=== PATIENT | female | born 1930 | race African-American/Black ===

== ENCOUNTER 2016-09-26 10:51 | Outpatient (CLI) | payer MEDICARE, OTHER ==
[2016-09-26 13:07] LABS: ALT (SGPT) 10 U/L (0-55); AST (SGOT) 16 U/L (5-34); Alkaline Phosphatase 127 U/L (40-150); Anion Gap 15 mmol/L (10-20); BUN (Urea Nitrogen) 15 mg/dL (9.8-20.1); Bilirubin, Total 0.5 mg/dL (0.2-1.2); Calc. Creatinine Clearance 0 mL/min (70-130); Calcium 9.5 mg/dL (7.8-10.44); Carbon Dioxide 33 mmol/L (23-31); Chloride 100 mmol/L (98-107); Estimated GFR-MDRD 77; Globulin 3.6 g/dL (2.4-3.5); LDL Cholesterol, Calculated 80 mg/dL; Protein, Total 7.8 g/dL (5.8-8.1)
[2016-09-26 13:26] LABS: Hemoglobin A1c 5.8 % (4.0-6.0)
[2016-09-26 14:07] LABS: #Basophils 0.1 thou/uL (0.0-0.2); #Eosinphils 0.2 thou/uL (0.0-0.7); #Lymphocytes 1.6 thou/uL (1.20-3.40); #Monocytes 0.5 thou/uL (0.11-0.59); #Neutrophils 4.7 thou/uL (1.40-6.50); %Basophils 1.2 % (0.0-1.0); %Eosinophils 2.6 % (0.0-10.0); %Monocytes 7.4 % (0.0-10.0); Hematocrit 39.7 % (36.0-47.0); Macrocytosis SLIGHT = 6-15 cells (100X) (0-5/hpf); Mean Platelet Volume 6.7 fL (7.4-10.4); Red Blood Cell (RBC) Count 3.73 mill/uL (4.20-5.40); White Blood Cell (WBC) Count 7.1 thou/uL (4.8-10.8)
== END 2016-09-26 10:52 | disposition home or self-care (01) ==
LOC: HPCALD 10:51
PROVIDERS: ATTEND Family Medicine
DX: E11.9 Type 2 diabetes mellitus without complications (principal); I10 Essential (primary) hypertension; D53.9 Nutritional anemia, unspecified; E78.00 Pure hypercholesterolemia, unspecified
CPT/HCPCS: 36415; 80053; 80061; 82607; 82728; 83036; 85025

== ENCOUNTER 2016-10-12 09:19 | Outpatient (CLI) | payer MEDICARE, OTHER ==
[2016-10-12 11:17] LABS: #Basophils 0.1 thou/uL (0.0-0.2); #Eosinphils 0.2 thou/uL (0.0-0.7); #Lymphocytes 1.6 thou/uL (1.20-3.40); #Monocytes 0.6 thou/uL (0.11-0.59); #Neutrophils 5.3 thou/uL (1.40-6.50); %Basophils 1.4 % (0.0-1.0); %Eosinophils 3.1 % (0.0-10.0); %Monocytes 7.4 % (0.0-10.0); Hematocrit 39.6 % (36.0-47.0); Mean Platelet Volume 7.2 fL (7.4-10.4); Red Blood Cell (RBC) Count 3.74 mill/uL (4.20-5.40); White Blood Cell (WBC) Count 7.8 thou/uL (4.8-10.8)
[2016-10-12 11:23] LABS: ALT (SGPT) 12 U/L (0-55); AST (SGOT) 18 U/L (5-34); Alkaline Phosphatase 139 U/L (40-150); Anion Gap 19 mmol/L (10-20); BUN (Urea Nitrogen) 12 mg/dL (9.8-20.1); Bilirubin, Total 0.7 mg/dL (0.2-1.2); Calc. Creatinine Clearance 0 mL/min (70-130); Calcium 9.8 mg/dL (7.8-10.44); Carbon Dioxide 29 mmol/L (23-31); Chloride 101 mmol/L (98-107); Estimated GFR-MDRD 81; Protein, Total 8.3 g/dL (5.8-8.1)
[2016-10-12 13:06] LABS: Macrocytosis SLIGHT = 6-15 cells (100X) (0-5/hpf)
== END 2016-10-12 09:20 | disposition home or self-care (01) ==
LOC: BURLAB 09:19
PROVIDERS: ATTEND Internal Medicine Rheumatology
DX: M05.79 Rheumatoid arthritis with rheumatoid factor of multiple sites without organ or systems involvement (principal); Z79.899 Other long term (current) drug therapy
CPT/HCPCS: 36415; 80053; 85025; 85652; 86140

== ENCOUNTER 2016-12-01 09:21 | Emergency (ER) | payer MEDICARE, OTHER ==
[2016-12-01 10:17] LABS: #Basophils 0.1 thou/uL (0.0-0.2); #Eosinphils 0.2 thou/uL (0.0-0.7); #Lymphocytes 1.7 thou/uL (1.20-3.40); #Monocytes 0.7 thou/uL (0.11-0.59); #Neutrophils 6.3 thou/uL (1.40-6.50); %Basophils 1.2 % (0.0-1.0); %Lymphocytes 18.5 % (21.0-51.0); %Monocytes 8.3 % (0.0-10.0); %Neutrophils 70.1 % (42.0-75.0); Hemoglobin 11.6 g/dL (12.0-16.0); Mean Corpuscular HGB CONC 30.7 g/dL (32.0-36.0); Mean Corpuscular Hemoglobin 33.1 pg (27.0-31.0); Mean Platelet Volume 8.1 fL (7.4-10.4); Platelet Count 193 thou/uL (130-400); RBC Distribution Width 15.2 % (11.5-14.5)
[2016-12-01 10:24] LABS: ALT (SGPT) 10 U/L (0-55); AST (SGOT) 16 U/L (5-34); Albumin 3.9 g/dL (3.4-4.8); Alkaline Phosphatase 124 U/L (40-150); Anion Gap 14 mmol/L (10-20); BUN (Urea Nitrogen) 19 mg/dL (9.8-20.1); Bilirubin, Total 0.5 mg/dL (0.2-1.2); Calc. Creatinine Clearance 0 mL/min (70-130); Calcium 9.5 mg/dL (7.8-10.44); Carbon Dioxide 36 mmol/L (23-31); Chloride 98 mmol/L (98-107); Estimated GFR-MDRD 67; Globulin 3.6 g/dL (2.4-3.5); Glucose 103 mg/dL (83-110); Protein, Total 7.5 g/dL (5.8-8.1); Sodium 144 mmol/L (136-145)
[2016-12-01 10:26] LABS: CKMB 0.8 ng/mL (0-6.6); Troponin I Less than 0.010 ng/mL (< 0.028)
[2016-12-01] MEDS ORDERED: predniSONE 20 MG TAB ONE (10:35)
[2016-12-01] MEDS ORDERED: Fentanyl 100 MCG/2 ML VIAL ONE ×2 (10:35→11:07)
[2016-12-01 10:40] LABS: MDiff Complete? YES; Macrocytosis SLIGHT = 6-15 cells (100X) (0-5/hpf); PLT Morphology Comment Appears Adequate
--- NOTE | 2016-12-01 19:08 | RAD ---
LEFT HIP THREE VIEWS 12/01/16 Comparison is made with an 07/02/13 study. Severe arthritic changes are present in the hip joint consisting of prominent joint space narrowing and slight irregularity of the femoral head. There is some cystic change in mottling of the head. Th e adjacent pubic ring has a very coarse trabecular pattern suggesting of Paget's disease. I do not s ee any acute fracture; however, subtle fractures would be easily missed in this patient due to all o f the changes listed above. If clinical suspicion of such were high, additional imaging, such was MR I, would be needed. IMPRESSION: 1. Severe arthritic changes. The appearance is somewhat similar to the 2013 study. There may be slight advancement over time. 2. 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 POS: HOME
== END 2016-12-01 11:24 | disposition home or self-care (01) ==
LOC: BURERS 09:21
DX: M06.9 Rheumatoid arthritis, unspecified (principal); I11.0 Hypertensive heart disease with heart failure; I50.9 Heart failure, unspecified; Z79.82 Long term (current) use of aspirin; Z79.899 Other long term (current) drug therapy
CPT/HCPCS: 36415; 80053; 82553; 84484; 85025; 93005; 96372; J3010; J7506

== ENCOUNTER 2017-03-08 09:33 | Outpatient (CLI) | payer MEDICARE, OTHER ==
[2017-03-08 10:19] LABS: #Basophils 0.1 thou/uL (0.0-0.2); #Eosinphils 0.2 thou/uL (0.0-0.7); #Lymphocytes 1.9 thou/uL (1.20-3.40); #Monocytes 0.7 thou/uL (0.11-0.59); #Neutrophils 5.5 thou/uL (1.40-6.50); %Basophils 1.7 % (0.0-1.0); %Eosinophils 2.8 % (0.0-10.0); %Lymphocytes 22.1 % (21.0-51.0); %Monocytes 7.9 % (0.0-10.0); %Neutrophils 65.5 % (42.0-75.0); Hemoglobin 12.3 g/dL (12.0-16.0); Mean Corpuscular HGB CONC 32.7 g/dL (32.0-36.0); Mean Corpuscular Hemoglobin 34.2 pg (27.0-31.0); Mean Platelet Volume 6.7 fL (7.4-10.4); Platelet Count 215 thou/uL (130-400); RBC Distribution Width 14.8 % (11.5-14.5); White Blood Cell (WBC) Count 8.5 thou/uL (4.8-10.8)
[2017-03-08 12:16] LABS: ALT (SGPT) 13 U/L (8-55); AST (SGOT) 20 U/L (5-34); Albumin 4.1 g/dL (3.4-4.8); Alkaline Phosphatase 180 U/L (40-150); Anion Gap 15 mmol/L (10-20); BUN (Urea Nitrogen) 20 mg/dL (9.8-20.1); Bilirubin, Total 0.7 mg/dL (0.2-1.2); Calc. Creatinine Clearance 0 mL/min (70-130); Calcium 9.9 mg/dL (7.8-10.44); Carbon Dioxide 34 mmol/L (23-31); Cardiac Risk 3.4 (Less than 4.5); Chloride 100 mmol/L (98-107); Cholesterol 136 mg/dl (< 200 Desired); Estimated GFR-MDRD 66; Globulin 3.6 g/dL (2.4-3.5); Glucose 100 mg/dL (83-110); HDL Cholesterol 40 mg/dL (>60 Neg Risk); LDL Cholesterol, Calculated 72 mg/dL; Potassium 4.9 mmol/L (3.5-5.1); Protein, Total 7.7 g/dL (6.0-8.3); Sodium 144 mmol/L (136-145); Triglycerides 119 mg/dL (Less than 150)
[2017-03-08 13:16] LABS: MDiff Complete? YES; Macrocytosis SLIGHT = 6-15 cells (100X) (0-5/hpf); PLT Morphology Comment Appears Adequate
== END 2017-03-08 09:34 | disposition home or self-care (01) ==
LOC: BURLAB 09:33
PROVIDERS: ATTEND Family Medicine
DX: E78.00 Pure hypercholesterolemia, unspecified (principal); I10 Essential (primary) hypertension; R73.9 Hyperglycemia, unspecified
CPT/HCPCS: 36415; 80053; 80061; 83036; 85025

== ENCOUNTER 2019-03-24 04:11 | Emergency (ER) | payer MEDICARE, BC ==
[2019-03-24] MEDS ORDERED: HYDROcodone/Acetaminophen 10/325 mg Tablet ONE (04:56)
[2019-03-24] MEDS ORDERED: Ibuprofen 800 MG TAB ONE (04:56)
--- NOTE | 2019-03-24 07:52 | RAD ---
EXAM: 3 views of the right shoulder HISTORY: Shoulder pain after fall COMPARISON: 11/03/2009 FINDINGS: There is a comminuted fracture of the right humeral neck. Severe degenerative changes seen in the right shoulder joint. No dislocation is seen. Mild soft tissue swelling is seen. The visualized thorax is unremarkable. IMPRESSION: Comminuted right proximal humerus fracture
== END 2019-03-24 05:15 | disposition home or self-care (01) ==
LOC: BURERS 04:11
DX: S42.211A Unspecified displaced fracture of surgical neck of right humerus, initial encounter for closed fracture (principal); I11.0 Hypertensive heart disease with heart failure; I50.9 Heart failure, unspecified; M06.9 Rheumatoid arthritis, unspecified; Z79.82 Long term (current) use of aspirin; Z79.899 Other long term (current) drug therapy; Z79.52 Long term (current) use of systemic steroids; W06.XXXA Fall from bed, initial encounter

== ENCOUNTER 2019-03-26 10:35 | Inpatient (IN) | payer MEDICARE, BC ==
[2019-03-26] MEDS ORDERED: tiZANidine HCl 4 MG TAB PO PRN ×2 (13:30→13:38)
[2019-03-26] MEDS ORDERED: Methotrexate Sodium 2.5 MG TAB PO SCH (14:00)
[2019-03-26] MEDS ORDERED: PATIENT'S HOME MEDICATION EA EYE PRN (15:30)
[2019-03-26] MEDS ORDERED: HYPROMELLOSE EA EYE PRN (15:35)
[2019-03-26] MEDS ORDERED: SYSTANE EYE EA EYE PRN (15:45)
[2019-03-26] MEDS ORDERED: Ketorolac Tromethamine 30 MG/ML VIAL IVP PRN (17:06)
--- NOTE | 2019-03-26 18:01 | RAD ---
AP PELVIS: HISTORY: The patient is status post fall with bruising. COMPARISON: 06/22/2013 TECHNIQUE: This is a portable exam, and the technique is suboptimal. FINDINGS: The pelvis ring appears to be intact without evidence of fracture. Bony changes along the left side of the iliac bone are most suggestive of probable pagetoid type change. There are arthritic changes of the left hip. Arthritic changes of the lower lumbar spine and atherosclerosis are seen. IMPRESSION: Limited examination due to the portable technique. No definitive acute changes. POS: RAMON
[2019-03-26] MEDS: Ipratropium Bromide 2.5 ml Neb NEB SCH (18:42)
[2019-03-26] MEDS ORDERED: Non-Formulary Item 1 EACH (Losartan Potassium [Losartan Potassium] 1 TAB) PO SCH (21:00)
[2019-03-26] MEDS ORDERED: Losartan Potassium 50 MG TAB PO SCH (21:00)
[2019-03-26] MEDS ORDERED: Sotalol HCl 80 MG TAB PO SCH ×2 (21:00)
[2019-03-26] MEDS ORDERED: Famotidine 20 MG TAB PO PRN (21:00)
--- NOTE | 2019-03-26 23:56 | HP ---
CHIEF COMPLAINT: Intractable pain. HISTORY OF PRESENT ILLNESS: An 88-year-old female presented with family members to the outpatient clinic earlier today with complaints of progressive pain in relation to a recent fall. The patient reports to have fallen when attempting to transition to the toilet. Subsequent workup ended up revealing the patient to have a surgical neck fracture of her right humerus. The patient is right-handed. She was evaluated by Dr. Villanueva, Orthopedic Surgery, yesterday and thus far has planned for conservative approach without planned surgical intervention. She is wearing a sling to the right upper extremity and plan is for the patient to follow up with Dr. Villanueva in approximately one month. The patient has underlying mobility issues related to history of rheumatoid arthritis, history of CVA, and history of brain tumor removal with complication resulting in chronic facial droop on the right side. The patient has a history of scoliosis as well and at her baseline ambulates with difficulty with the assistance of a walker. She is unable to satisfactorily care for herself in her home setting and this along with her uncontrolled pain has prompted her direct admission to [facility]. Both the patient and her family members have been agreeable to this plan. Thus far, she has received IV morphine with small benefit. She is typically on [place] 5-325 q.4 hours p.r.n. at baseline. IV Toradol has been added for further pain control. Other than her pain to the right upper extremity, she has additional complaints of pain to her pelvis and buttock area related to her fall as well. She has abundant ecchymosis to these areas and states she has not had this evaluated by imaging to this point. The patient's only other complaint is that of constipation for which she reports to take milk of magnesia on a p.r.n. basis. PAST MEDICAL HISTORY: Rheumatoid arthritis, hyperlipidemia, gastroesophageal reflux disease, history of brain tumor, history of gout, and history of CVA. PAST SURGICAL HISTORY: She had a brain tumor surgery, aortic aneurysm, hysterectomy, pacemaker, bilateral knee repair, rotator cuff repair, cholecystectomy, thyroidectomy, and bladder repair. SOCIAL HISTORY: No ETOH, smoking, or illicit drug use. She typically lives at home alone with family nearby. ALLERGIES: NO KNOWN DRUG ALLERGIES. FAMILY HISTORY: Noncontributory. REVIEW OF SYSTEMS: GENERAL: Denies fever, chills, or diaphoresis. EARS, NOSE, AND THROAT: Denies sore throat, nasal drainage, or congestion. CARDIOVASCULAR: Denies chest pain or palpitations. RESPIRATORY: Denies shortness of breath or cough. GASTRO: Denies abdominal pain, nausea, vomiting, or diarrhea. She does report to have constipation. GENITOURINARY: Denies dysuria. MUSCULOSKELETAL: Complains of joint pain. DERM: Denies rash. NEURO: Denies headache. LABORATORY DATA: These will be ordered for tomorrow morning including CBC and CMP. IMAGING: Pelvic x-ray has been ordered. PHYSICAL EXAMINATION: VITAL SIGNS: Temperature is 98.4, pulse is 66, respiratory rate is 18, oxygen is 92% on 2 L, blood pressure 178/73. GENERAL: The patient is alert and oriented, in no acute distress. Face, she has chronic right-sided facial droop. Eyes, conjunctivae are clear. Extraocular muscles are intact. Right eye does not fully close. She has watery discharge on the left. Oral cavity shows moist mucous membranes. NECK: Supple with no lymphadenopathy. CARDIOVASCULAR: Regular rate. Normal S1, S2. 2/6 murmur. RESPIRATORY: Clear to auscultation bilaterally with nasal cannula in place. GASTROINTESTINAL: Soft, nontender to palpation. No masses. EXTREMITIES: No clubbing or cyanosis. She has 2+ edema at the left ankle, 1+ on the right. MUSCULOSKELETAL: Right upper extremity in sling. Pain with active and passive range of motion of the right upper extremity. SKIN: No rashes. She has ecchymosis to the buttock and hip areas. NEUROLOGIC: Chronic facial droop on the right. BACK: She has lumbar paraspinal tenderness with scoliosis of the spine noted. ASSESSMENT AND PLAN: 1. Surgical neck fracture of the right humerus, status post fall with intractable pain. The patient will be provided with IV pain medication along with her usual pain medication regimen. We will plan for the patient to participate with Physical Therapy and Occupational Therapy. We will also plan for the patient's followup with Dr. Villanueva in approximately one month with continued use of the sling to her right upper extremity. 2. Pelvic pain status post fall. I have ordered an x-ray of the patient's pelvis to further assess this. 3. Rheumatoid arthritis. We will resume the patient's usual medications for this including methotrexate. 4. Hypertension. The patient's blood pressure is currently elevated, however, was notably within normal limits when seen in the clinic this morning. We will resume her usual home blood pressure medications and continue to monitor her vitals. 5. Dyslipidemia. We will resume the patient's statin. 6. History of cerebrovascular accident, she is on high-dose aspirin therapy at 325 mg daily. 7. Gait instability. The patient uses a walker at baseline, however, is unable to do so safely. Will work on this with physical therapy and occupational therapy. 8. Constipation. Have added milk of Mag p.r.n. use. 9. Prophylaxis. The patient has famotidine for gastrointestinal prophylaxis. DISPOSITION: Plan to eventually discharge the patient home once she has satisfactorily met the goal set forth by Physical Therapy and Occupational Therapy to be able to care for herself in her home setting; I do expect an extended stay accordingly. Job ID: [id number] MTDD
[2019-03-27] MEDS: Milk Of Magnesia 30 ML UDCUP PO PRN (00:12)
[2019-03-27] MEDS: Ipratropium Bromide 2.5 ml Neb NEB SCH ×4 (00:14→18:00)
[2019-03-27 05:34] LABS: ALT (SGPT) Less than 7 U/L (8-55); AST (SGOT) 13 U/L (5-34); Albumin 3.4 g/dL (3.4-4.8); Alkaline Phosphatase 189 U/L (40-150); Anion Gap 13 mmol/L (10-20); BUN (Urea Nitrogen) 22 mg/dL (9.8-20.1); Bilirubin, Total 0.6 mg/dL (0.2-1.2); Calc. Creatinine Clearance 0 mL/min (70-130); Calcium 9.5 mg/dL (7.8-10.44); Carbon Dioxide 35 mmol/L (23-31); Chloride 99 mmol/L (98-107); Estimated GFR-MDRD 86; Globulin 3.5 g/dL (2.4-3.5); Glucose 111 mg/dL (83-110); Potassium 4.5 mmol/L (3.5-5.1); Protein, Total 6.9 g/dL (6.0-8.3); Sodium 142 mmol/L (136-145)
[2019-03-27 05:59] LABS: Anisocytosis SLIGHT = 6-15 cells (100X) (0-5/hpf); Band 2 % (5-11); Eosinophils 1 % (0-10); Hemoglobin 9.3 g/dL (12.0-16.0); Hypochromia SLIGHT = 6-15 cells (100X) (0-5/hpf); Lymphocytes 14 % (21-51); MDiff Complete? YES; Macrocytosis SLIGHT = 6-15 cells (100X) (0-5/hpf); Mean Corpuscular HGB CONC 29.7 g/dL (32.0-36.0); Mean Corpuscular Hemoglobin 32.3 pg (27.0-31.0); Mean Platelet Volume 7.3 fL (7.4-10.4); Monocytes 9 % (0-10); Neutrophil 74 % (42-75); Platelet Count 143 thou/uL (130-400); Platelet Morphology Comment Appears Adequate; Red Blood Cell (RBC) Count 2.89 mill/uL (4.20-5.40); White Blood Cell (WBC) Count 7.9 thou/uL (4.8-10.8)
[2019-03-27] MEDS ORDERED: Polyethylene Glycol 3350 17 GM Packet PO PRN (08:03)
[2019-03-27] MEDS: Aspirin 325 mg Enteric Coated Tablet PO SCH (08:50)
[2019-03-27] MEDS: Atorvastatin Calcium 10 MG TAB PO SCH (08:50)
[2019-03-27] MEDS: Furosemide 40 MG TAB PO SCH (08:50)
[2019-03-27] MEDS: Sotalol HCl 80 MG TAB PO SCH ×2 (08:51→21:21)
[2019-03-27] MEDS: Losartan Potassium 50 MG TAB PO SCH ×2 (08:51→21:19)
[2019-03-27] MEDS: Ascorbic Acid 500 mg Chewable Tablet PO SCH (08:52)
[2019-03-27] MEDS: Folic Acid 1 MG TAB PO SCH (08:52)
[2019-03-27] MEDS: Loratadine 10 MG TAB PO SCH (08:52)
[2019-03-27] MEDS: Fluticasone Propionate Nasal Spray 16 gm Bottle NASAL SCH (08:53)
[2019-03-27] MEDS: Potassium Chloride 10 MEQ TAB PO SCH (08:54)
[2019-03-27] MEDS ORDERED: Folic Acid 1 MG TAB PO SCH (09:00)
[2019-03-27] MEDS ORDERED: Potassium Chloride 10 MEQ TAB PO SCH (09:00)
[2019-03-27] MEDS ORDERED: Non-Formulary Item 1 EACH (Tiotropium Bromide [Spiriva Respimat] 2 PUFF) IH SCH (09:00)
[2019-03-27] MEDS ORDERED: Methotrexate Sodium 2.5 MG TAB PO SCH (09:00)
[2019-03-27] MEDS ORDERED: Ketorolac Tromethamine 30 MG/ML VIAL ONE (10:03)
[2019-03-27] MEDS: HYDROcodone/Acetaminophen 5/325 mg Tablet PO PRN ×2 (12:01→22:06)
[2019-03-27 12:25] VITALS: BMI 34.4
[2019-03-28] MEDS: Ipratropium Bromide 2.5 ml Neb NEB SCH ×3 (01:53→16:17)
[2019-03-28] MEDS: Losartan Potassium 50 MG TAB PO SCH ×2 (10:23→21:22)
[2019-03-28] MEDS: Sotalol HCl 80 MG TAB PO SCH ×2 (10:24→21:23)
[2019-03-28] MEDS: Loratadine 10 MG TAB PO SCH (10:25)
[2019-03-28] MEDS: Potassium Chloride 10 MEQ TAB PO SCH (10:25)
[2019-03-28] MEDS: Folic Acid 1 MG TAB PO SCH (10:25)
[2019-03-28] MEDS: Furosemide 40 MG TAB PO SCH (10:26)
[2019-03-28] MEDS: Aspirin 325 mg Enteric Coated Tablet PO SCH (10:27)
[2019-03-28] MEDS: Fluticasone Propionate Nasal Spray 16 gm Bottle NASAL SCH (10:28)
[2019-03-28] MEDS: Ascorbic Acid 500 mg Chewable Tablet PO SCH (10:31)
[2019-03-28] MEDS ORDERED: Fluticasone Propionate Nasal Spray 16 gm Bottle NASAL PRN (13:21)
[2019-03-28] MEDS ORDERED: Loratadine 10 MG TAB PO PRN (13:21)
[2019-03-28] MEDS ORDERED: Ipratropium Bromide 2.5 ml Neb NEB PRN (13:21)
[2019-03-28] MEDS: HYDROcodone/Acetaminophen 5/325 mg Tablet PO PRN (14:47)
[2019-03-28] MEDS: Atorvastatin Calcium 10 MG TAB PO SCH ×2 (16:15→21:24)
[2019-03-29] MEDS: Milk Of Magnesia 30 ML UDCUP PO PRN (03:48)
[2019-03-29] MEDS: Aspirin 325 mg Enteric Coated Tablet PO SCH (08:26)
[2019-03-29] MEDS: Potassium Chloride 10 MEQ TAB PO SCH (08:26)
[2019-03-29] MEDS: Folic Acid 1 MG TAB PO SCH (08:27)
[2019-03-29] MEDS: Losartan Potassium 50 MG TAB PO SCH ×2 (08:27→22:20)
[2019-03-29] MEDS: Ascorbic Acid 500 mg Chewable Tablet PO SCH (08:28)
[2019-03-29] MEDS: Furosemide 40 MG TAB PO SCH (08:28)
[2019-03-29] MEDS: Sotalol HCl 80 MG TAB PO SCH ×2 (08:28→22:18)
[2019-03-29] MEDS: HYDROcodone/Acetaminophen 5/325 mg Tablet PO PRN ×2 (11:15→21:13)
[2019-03-29 18:37] VITALS: BP 95/53; TEMP 98.4
[2019-03-29] MEDS: Atorvastatin Calcium 10 MG TAB PO SCH (21:13)
== END 2019-03-29 22:00 | disposition swing bed (61) | DRG 561 ==
LOC: BURMED 10:35
PROVIDERS: ADMIT Family Medicine; ATTEND Family Medicine
DX: S42.211D Unspecified displaced fracture of surgical neck of right humerus, subsequent encounter for fracture with routine healing (principal); R10.2 Pelvic and perineal pain; M06.9 Rheumatoid arthritis, unspecified; I10 Essential (primary) hypertension; E78.5 Hyperlipidemia, unspecified; R26.81 Unsteadiness on feet; K59.00 Constipation, unspecified; K21.9 Gastro-esophageal reflux disease without esophagitis; Z86.73 Personal history of transient ischemic attack (TIA), and cerebral infarction without residual deficits; Z90.710 Acquired absence of both cervix and uterus; Z95.0 Presence of cardiac pacemaker; Z90.49 Acquired absence of other specified parts of digestive tract; Z90.89 Acquired absence of other organs; W19.XXXD Unspecified fall, subsequent encounter
CPT/HCPCS: 36415; 72170; 80053; 85025; J1885; J2270

== ENCOUNTER 2019-03-29 22:00 | Inpatient (IN) | payer MEDICARE, BC ==
[2019-03-30] MEDS ORDERED: tiZANidine HCl 4 MG TAB PO PRN (05:33)
[2019-03-30] MEDS ORDERED: SYSTANE EYE EA EYE PRN (05:35)
[2019-03-30] MEDS ORDERED: HYPROMELLOSE EA EYE PRN (05:35)
[2019-03-30] MEDS ORDERED: Milk Of Magnesia 30 ML UDCUP PO PRN (05:35)
[2019-03-30] MEDS ORDERED: Loratadine 10 MG TAB PO PRN (05:36)
[2019-03-30] MEDS: Losartan Potassium 50 MG TAB PO SCH ×2 (08:45→20:35)
[2019-03-30] MEDS: Folic Acid 1 MG TAB PO SCH (08:46)
[2019-03-30] MEDS: Furosemide 40 MG TAB PO SCH (08:47)
[2019-03-30] MEDS: Ascorbic Acid 500 mg Chewable Tablet PO SCH (08:47)
[2019-03-30] MEDS: Aspirin 325 mg Enteric Coated Tablet PO SCH (08:47)
[2019-03-30] MEDS: Potassium Chloride 10 MEQ TAB PO SCH (08:48)
[2019-03-30] MEDS: Atorvastatin Calcium 10 MG TAB PO SCH (20:35)
[2019-03-30] MEDS: Fluticasone Propionate Nasal Spray 16 gm Bottle NASAL PRN (20:55)
[2019-03-31] MEDS: HYDROcodone/Acetaminophen 5/325 mg Tablet PO PRN (04:26)
[2019-03-31] MEDS: Losartan Potassium 50 MG TAB PO SCH ×2 (09:36→20:09)
[2019-03-31] MEDS: Folic Acid 1 MG TAB PO SCH (09:37)
[2019-03-31] MEDS: Aspirin 325 mg Enteric Coated Tablet PO SCH (09:37)
[2019-03-31] MEDS: Furosemide 40 MG TAB PO SCH (09:37)
[2019-03-31] MEDS: Potassium Chloride 10 MEQ TAB PO SCH (09:38)
[2019-03-31] MEDS: Ascorbic Acid 500 mg Chewable Tablet PO SCH (09:38)
[2019-03-31] MEDS: Atorvastatin Calcium 10 MG TAB PO SCH (20:08)
[2019-04-01] MEDS: Folic Acid 1 MG TAB PO SCH (08:38)
[2019-04-01] MEDS: Aspirin 325 mg Enteric Coated Tablet PO SCH (08:38)
[2019-04-01] MEDS: Losartan Potassium 50 MG TAB PO SCH ×2 (08:38→21:43)
[2019-04-01] MEDS: Potassium Chloride 10 MEQ TAB PO SCH (08:39)
[2019-04-01] MEDS: Ascorbic Acid 500 mg Chewable Tablet PO SCH (08:39)
[2019-04-01] MEDS: Furosemide 40 MG TAB PO SCH (08:39)
[2019-04-01] MEDS: Fluticasone Propionate Nasal Spray 16 gm Bottle NASAL PRN (15:29)
[2019-04-01] MEDS: Ipratropium Bromide 2.5 ml Neb NEB PRN (15:29)
[2019-04-01] MEDS: Atorvastatin Calcium 10 MG TAB PO SCH (21:44)
[2019-04-01] MEDS ORDERED: Sodium Chloride 0.9% 500 ML IV SCH (21:45)
[2019-04-02] MEDS ORDERED: Sodium Chloride 0.9% 1,000 ML IV SCH (04:00)
[2019-04-02] MEDS: Losartan Potassium 50 MG TAB PO SCH (07:57)
[2019-04-02] MEDS: Sotalol HCl 80 MG TAB PO SCH ×2 (07:58→20:36)
[2019-04-02] MEDS: Aspirin 325 mg Enteric Coated Tablet PO SCH (08:00)
[2019-04-02] MEDS: Ascorbic Acid 500 mg Chewable Tablet PO SCH (08:00)
[2019-04-02] MEDS: Potassium Chloride 10 MEQ TAB PO SCH (08:00)
[2019-04-02] MEDS: Folic Acid 1 MG TAB PO SCH (08:01)
[2019-04-02] MEDS: Furosemide 40 MG TAB PO SCH (08:01)
[2019-04-02] MEDS: HYDROcodone/Acetaminophen 5/325 mg Tablet PO PRN (15:17)
[2019-04-02] MEDS: Atorvastatin Calcium 10 MG TAB PO SCH (20:36)
[2019-04-03] MEDS ORDERED: Methotrexate Sodium 2.5 MG TAB PO SCH (09:00)
[2019-04-03] MEDS: Potassium Chloride 10 MEQ TAB PO SCH (09:29)
[2019-04-03] MEDS: Aspirin 325 mg Enteric Coated Tablet PO SCH (09:29)
[2019-04-03] MEDS: Furosemide 40 MG TAB PO SCH (09:29)
[2019-04-03] MEDS: Ascorbic Acid 500 mg Chewable Tablet PO SCH (09:29)
[2019-04-03] MEDS: Folic Acid 1 MG TAB PO SCH (09:29)
[2019-04-03] MEDS: Sotalol HCl 80 MG TAB PO SCH ×2 (09:30→20:34)
[2019-04-03] MEDS: Losartan Potassium 50 MG TAB PO SCH (09:31)
[2019-04-03] MEDS: Methotrexate Sodium 2.5 MG TAB PO SCH (13:21)
[2019-04-03] MEDS: Atorvastatin Calcium 10 MG TAB PO SCH (20:45)
[2019-04-04] MEDS: Aspirin 325 mg Enteric Coated Tablet PO SCH (10:08)
[2019-04-04] MEDS: Ascorbic Acid 500 mg Chewable Tablet PO SCH (10:08)
[2019-04-04] MEDS: Potassium Chloride 10 MEQ TAB PO SCH (10:08)
[2019-04-04] MEDS: Furosemide 40 MG TAB PO SCH (10:08)
[2019-04-04] MEDS: Folic Acid 1 MG TAB PO SCH (10:08)
[2019-04-04] MEDS: Losartan Potassium 50 MG TAB PO SCH (10:10)
[2019-04-04] MEDS: Sotalol HCl 80 MG TAB PO SCH ×2 (10:10→21:16)
[2019-04-04] MEDS: Fluticasone Propionate Nasal Spray 16 gm Bottle NASAL PRN (16:32)
[2019-04-04] MEDS: HYDROcodone/Acetaminophen 5/325 mg Tablet PO PRN (16:33)
[2019-04-04] MEDS: Atorvastatin Calcium 10 MG TAB PO SCH (21:16)
[2019-04-04] MEDS: Polyethylene Glycol 3350 17 GM Packet PO PRN (21:23)
[2019-04-05] MEDS: HYDROcodone/Acetaminophen 5/325 mg Tablet PO PRN ×2 (01:59→23:05)
[2019-04-05] MEDS: Aspirin 325 mg Enteric Coated Tablet PO SCH (09:21)
[2019-04-05] MEDS: Potassium Chloride 10 MEQ TAB PO SCH (09:22)
[2019-04-05] MEDS: Losartan Potassium 50 MG TAB PO SCH (09:22)
[2019-04-05] MEDS: Ascorbic Acid 500 mg Chewable Tablet PO SCH (09:22)
[2019-04-05] MEDS: Sotalol HCl 80 MG TAB PO SCH ×2 (09:23→21:52)
[2019-04-05] MEDS: Folic Acid 1 MG TAB PO SCH (09:23)
[2019-04-05] MEDS: Furosemide 40 MG TAB PO SCH (09:23)
[2019-04-05] MEDS: Atorvastatin Calcium 10 MG TAB PO SCH (21:52)
[2019-04-05] MEDS: Polyethylene Glycol 3350 17 GM Packet PO PRN (21:52)
[2019-04-06] MEDS: Folic Acid 1 MG TAB PO SCH (09:37)
[2019-04-06] MEDS: Sotalol HCl 80 MG TAB PO SCH ×2 (09:37→22:12)
[2019-04-06] MEDS: Potassium Chloride 10 MEQ TAB PO SCH (09:37)
[2019-04-06] MEDS: Aspirin 325 mg Enteric Coated Tablet PO SCH (09:37)
[2019-04-06] MEDS: Losartan Potassium 50 MG TAB PO SCH (09:38)
[2019-04-06] MEDS: Furosemide 40 MG TAB PO SCH (09:38)
[2019-04-06] MEDS: Ascorbic Acid 500 mg Chewable Tablet PO SCH (09:38)
[2019-04-06] MEDS: Fluticasone Propionate Nasal Spray 16 gm Bottle NASAL PRN (13:43)
[2019-04-06] MEDS: Ipratropium Bromide 2.5 ml Neb NEB PRN (13:44)
[2019-04-06] MEDS: Atorvastatin Calcium 10 MG TAB PO SCH (22:12)
[2019-04-06] MEDS: HYDROcodone/Acetaminophen 5/325 mg Tablet PO PRN (22:16)
[2019-04-07] MEDS: Losartan Potassium 50 MG TAB PO SCH (08:22)
[2019-04-07] MEDS: Ascorbic Acid 500 mg Chewable Tablet PO SCH (08:23)
[2019-04-07] MEDS: Furosemide 40 MG TAB PO SCH (08:23)
[2019-04-07] MEDS: Sotalol HCl 80 MG TAB PO SCH ×2 (08:23→21:06)
[2019-04-07] MEDS: Potassium Chloride 10 MEQ TAB PO SCH (08:24)
[2019-04-07] MEDS: Folic Acid 1 MG TAB PO SCH (08:24)
[2019-04-07] MEDS: Aspirin 325 mg Enteric Coated Tablet PO SCH (08:24)
[2019-04-07] MEDS: Atorvastatin Calcium 10 MG TAB PO SCH (21:06)
[2019-04-08] MEDS: HYDROcodone/Acetaminophen 5/325 mg Tablet PO PRN ×2 (06:24→21:05)
[2019-04-08] MEDS: Aspirin 325 mg Enteric Coated Tablet PO SCH (08:36)
[2019-04-08] MEDS: Sotalol HCl 80 MG TAB PO SCH ×2 (08:36→20:37)
[2019-04-08] MEDS: Losartan Potassium 50 MG TAB PO SCH (08:37)
[2019-04-08] MEDS: Folic Acid 1 MG TAB PO SCH (08:37)
[2019-04-08] MEDS: Furosemide 40 MG TAB PO SCH (08:38)
[2019-04-08] MEDS: Potassium Chloride 10 MEQ TAB PO SCH (08:38)
[2019-04-08] MEDS: Ascorbic Acid 500 mg Chewable Tablet PO SCH (08:38)
[2019-04-08] MEDS: Atorvastatin Calcium 10 MG TAB PO SCH (20:37)
[2019-04-09] MEDS: Sotalol HCl 80 MG TAB PO SCH ×2 (08:33→20:39)
[2019-04-09] MEDS: Aspirin 325 mg Enteric Coated Tablet PO SCH (08:33)
[2019-04-09] MEDS: Losartan Potassium 50 MG TAB PO SCH (08:34)
[2019-04-09] MEDS: Ascorbic Acid 500 mg Chewable Tablet PO SCH (08:34)
[2019-04-09] MEDS: Folic Acid 1 MG TAB PO SCH (08:34)
[2019-04-09] MEDS: Furosemide 40 MG TAB PO SCH (08:34)
[2019-04-09] MEDS: Potassium Chloride 10 MEQ TAB PO SCH (08:34)
[2019-04-09] MEDS: Fluticasone Propionate Nasal Spray 16 gm Bottle NASAL PRN (11:29)
[2019-04-09] MEDS: Atorvastatin Calcium 10 MG TAB PO SCH (20:39)
[2019-04-09] MEDS: HYDROcodone/Acetaminophen 5/325 mg Tablet PO PRN (22:54)
[2019-04-10] MEDS: Polyethylene Glycol 3350 17 GM Packet PO PRN (05:15)
[2019-04-10] MEDS: Potassium Chloride 10 MEQ TAB PO SCH (08:41)
[2019-04-10] MEDS: Losartan Potassium 50 MG TAB PO SCH (08:41)
[2019-04-10] MEDS: Sotalol HCl 80 MG TAB PO SCH ×2 (08:41→21:01)
[2019-04-10] MEDS: Aspirin 325 mg Enteric Coated Tablet PO SCH (08:42)
[2019-04-10] MEDS: Furosemide 40 MG TAB PO SCH (08:42)
[2019-04-10] MEDS: Ascorbic Acid 500 mg Chewable Tablet PO SCH (08:43)
[2019-04-10] MEDS: Folic Acid 1 MG TAB PO SCH (08:43)
[2019-04-10 10:11] VITALS: BMI 35.6
[2019-04-10] MEDS: HYDROcodone/Acetaminophen 5/325 mg Tablet PO PRN ×2 (13:23→23:19)
[2019-04-10] MEDS: Methotrexate Sodium 2.5 MG TAB PO SCH (13:23)
[2019-04-10] MEDS: Atorvastatin Calcium 10 MG TAB PO SCH (21:02)
[2019-04-11] MEDS: Losartan Potassium 50 MG TAB PO SCH (09:00)
[2019-04-11] MEDS: Ascorbic Acid 500 mg Chewable Tablet PO SCH (09:05)
[2019-04-11] MEDS: Potassium Chloride 10 MEQ TAB PO SCH (09:05)
[2019-04-11] MEDS: Folic Acid 1 MG TAB PO SCH (09:06)
[2019-04-11] MEDS: Furosemide 40 MG TAB PO SCH (09:07)
[2019-04-11] MEDS: Aspirin 325 mg Enteric Coated Tablet PO SCH (09:08)
[2019-04-11] MEDS: Sotalol HCl 80 MG TAB PO SCH ×2 (09:10→21:16)
[2019-04-11] MEDS: Atorvastatin Calcium 10 MG TAB PO SCH (21:16)
[2019-04-12] MEDS: HYDROcodone/Acetaminophen 5/325 mg Tablet PO PRN (03:09)
[2019-04-12] MEDS: Famotidine 20 MG TAB PO PRN (03:15)
[2019-04-12] MEDS: Aspirin 325 mg Enteric Coated Tablet PO SCH (08:38)
[2019-04-12] MEDS: Sotalol HCl 80 MG TAB PO SCH ×2 (08:38→21:13)
[2019-04-12] MEDS: Potassium Chloride 10 MEQ TAB PO SCH (08:42)
[2019-04-12] MEDS: Losartan Potassium 50 MG TAB PO SCH (08:42)
[2019-04-12] MEDS: Ascorbic Acid 500 mg Chewable Tablet PO SCH (08:42)
[2019-04-12] MEDS: Folic Acid 1 MG TAB PO SCH (08:43)
[2019-04-12] MEDS: Furosemide 40 MG TAB PO SCH (08:44)
[2019-04-12] MEDS: ORENCIA 125 MG/ML SC SCH (11:03)
[2019-04-12] MEDS: Atorvastatin Calcium 10 MG TAB PO SCH (21:14)
[2019-04-13] MEDS: Aspirin 325 mg Enteric Coated Tablet PO SCH (08:45)
[2019-04-13] MEDS: Furosemide 40 MG TAB PO SCH (08:48)
[2019-04-13] MEDS: Potassium Chloride 10 MEQ TAB PO SCH (08:49)
[2019-04-13] MEDS: Ascorbic Acid 500 mg Chewable Tablet PO SCH (08:49)
[2019-04-13] MEDS: Folic Acid 1 MG TAB PO SCH (08:49)
[2019-04-13] MEDS: Losartan Potassium 50 MG TAB PO SCH (08:50)
[2019-04-13] MEDS: Sotalol HCl 80 MG TAB PO SCH ×2 (08:51→21:35)
[2019-04-13] MEDS: Fluticasone Propionate Nasal Spray 16 gm Bottle NASAL PRN (21:34)
[2019-04-13] MEDS: Atorvastatin Calcium 10 MG TAB PO SCH (21:35)
[2019-04-13] MEDS: Famotidine 20 MG TAB PO PRN (21:36)
[2019-04-14] MEDS: HYDROcodone/Acetaminophen 5/325 mg Tablet PO PRN ×2 (00:50→22:30)
[2019-04-14] MEDS: Sotalol HCl 80 MG TAB PO SCH ×2 (09:53→21:03)
[2019-04-14] MEDS: Potassium Chloride 10 MEQ TAB PO SCH (09:59)
[2019-04-14] MEDS: Ascorbic Acid 500 mg Chewable Tablet PO SCH (09:59)
[2019-04-14] MEDS: Losartan Potassium 50 MG TAB PO SCH (09:59)
[2019-04-14] MEDS: Aspirin 325 mg Enteric Coated Tablet PO SCH (09:59)
[2019-04-14] MEDS: Furosemide 40 MG TAB PO SCH (10:00)
[2019-04-14] MEDS: Folic Acid 1 MG TAB PO SCH (10:01)
[2019-04-14] MEDS: Atorvastatin Calcium 10 MG TAB PO SCH (21:03)
[2019-04-14] MEDS: Famotidine 20 MG TAB PO PRN (22:30)
[2019-04-15] MEDS: Aspirin 325 mg Enteric Coated Tablet PO SCH (10:11)
[2019-04-15] MEDS: Potassium Chloride 10 MEQ TAB PO SCH (10:11)
[2019-04-15] MEDS: Ascorbic Acid 500 mg Chewable Tablet PO SCH (10:12)
[2019-04-15] MEDS: Sotalol HCl 80 MG TAB PO SCH ×2 (10:12→21:45)
[2019-04-15] MEDS: Folic Acid 1 MG TAB PO SCH (10:12)
[2019-04-15] MEDS: Losartan Potassium 50 MG TAB PO SCH (10:13)
[2019-04-15] MEDS: Furosemide 40 MG TAB PO SCH (10:13)
[2019-04-15] MEDS: HYDROcodone/Acetaminophen 5/325 mg Tablet PO PRN (13:33)
[2019-04-15] MEDS: Fluticasone Propionate Nasal Spray 16 gm Bottle NASAL PRN (17:33)
[2019-04-15] MEDS: Atorvastatin Calcium 10 MG TAB PO SCH (21:45)
[2019-04-15] MEDS: Famotidine 20 MG TAB PO PRN (22:04)
[2019-04-16] MEDS: Ascorbic Acid 500 mg Chewable Tablet PO SCH (09:52)
[2019-04-16] MEDS: Aspirin 325 mg Enteric Coated Tablet PO SCH (09:52)
[2019-04-16] MEDS: Furosemide 40 MG TAB PO SCH (09:52)
[2019-04-16] MEDS: Losartan Potassium 50 MG TAB PO SCH (09:53)
[2019-04-16] MEDS: Folic Acid 1 MG TAB PO SCH (09:53)
[2019-04-16] MEDS: HYDROcodone/Acetaminophen 5/325 mg Tablet PO PRN (09:54)
[2019-04-16] MEDS: Potassium Chloride 10 MEQ TAB PO SCH (09:55)
[2019-04-16] MEDS: Sotalol HCl 80 MG TAB PO SCH ×2 (10:01→21:21)
[2019-04-16] MEDS: Atorvastatin Calcium 10 MG TAB PO SCH (21:21)
[2019-04-16] MEDS: Famotidine 20 MG TAB PO PRN (21:40)
[2019-04-17] MEDS: HYDROcodone/Acetaminophen 5/325 mg Tablet PO PRN ×2 (00:28→17:04)
[2019-04-17] MEDS: Aspirin 325 mg Enteric Coated Tablet PO SCH (08:58)
[2019-04-17] MEDS: Folic Acid 1 MG TAB PO SCH (08:59)
[2019-04-17] MEDS: Losartan Potassium 50 MG TAB PO SCH (08:59)
[2019-04-17] MEDS: Furosemide 40 MG TAB PO SCH (08:59)
[2019-04-17] MEDS: Potassium Chloride 10 MEQ TAB PO SCH (08:59)
[2019-04-17] MEDS: Ascorbic Acid 500 mg Chewable Tablet PO SCH (08:59)
[2019-04-17] MEDS: Sotalol HCl 80 MG TAB PO SCH ×2 (09:09→20:45)
[2019-04-17] MEDS: Methotrexate Sodium 2.5 MG TAB PO SCH (13:12)
[2019-04-17] MEDS: Famotidine 20 MG TAB PO PRN (20:44)
[2019-04-17] MEDS: Atorvastatin Calcium 10 MG TAB PO SCH (20:45)
[2019-04-18] MEDS: Fluticasone Propionate Nasal Spray 16 gm Bottle NASAL PRN ×2 (03:38→18:27)
[2019-04-18] MEDS: Aspirin 325 mg Enteric Coated Tablet PO SCH (09:42)
[2019-04-18] MEDS: Ascorbic Acid 500 mg Chewable Tablet PO SCH (09:42)
[2019-04-18] MEDS: Potassium Chloride 10 MEQ TAB PO SCH (09:42)
[2019-04-18] MEDS: Furosemide 40 MG TAB PO SCH (09:42)
[2019-04-18] MEDS: Folic Acid 1 MG TAB PO SCH (09:42)
[2019-04-18] MEDS: Losartan Potassium 50 MG TAB PO SCH (09:43)
[2019-04-18] MEDS: Sotalol HCl 80 MG TAB PO SCH ×2 (09:44→21:37)
[2019-04-18] MEDS: Atorvastatin Calcium 10 MG TAB PO SCH (21:37)
[2019-04-18] MEDS: HYDROcodone/Acetaminophen 5/325 mg Tablet PO PRN (22:09)
[2019-04-19] MEDS: Losartan Potassium 50 MG TAB PO SCH (09:38)
[2019-04-19] MEDS: Aspirin 325 mg Enteric Coated Tablet PO SCH (09:38)
[2019-04-19] MEDS: Sotalol HCl 80 MG TAB PO SCH ×2 (09:39→21:07)
[2019-04-19] MEDS: Ascorbic Acid 500 mg Chewable Tablet PO SCH (09:41)
[2019-04-19] MEDS: Folic Acid 1 MG TAB PO SCH (09:41)
[2019-04-19] MEDS: Furosemide 40 MG TAB PO SCH (09:42)
[2019-04-19] MEDS: Potassium Chloride 10 MEQ TAB PO SCH (09:43)
[2019-04-19] MEDS: ORENCIA 125 MG/ML SC SCH ×3 (09:52→17:12)
[2019-04-19] MEDS: KETOTIFEN 0.035% FS SCH ×2 (09:59→14:26)
[2019-04-19] MEDS: HYDROcodone/Acetaminophen 5/325 mg Tablet PO PRN (21:05)
[2019-04-19] MEDS: Atorvastatin Calcium 10 MG TAB PO SCH (21:07)
[2019-04-19] MEDS: Ketotifen Fumarate 0.025% Ophth Soln 5 ml Bottle EA EYE SCH (22:40)
[2019-04-20] MEDS: Aspirin 325 mg Enteric Coated Tablet PO SCH (09:41)
[2019-04-20] MEDS: Sotalol HCl 80 MG TAB PO SCH (09:41)
[2019-04-20] MEDS: Potassium Chloride 10 MEQ TAB PO SCH (09:45)
[2019-04-20] MEDS: Folic Acid 1 MG TAB PO SCH (09:46)
[2019-04-20] MEDS: Losartan Potassium 50 MG TAB PO SCH (09:46)
[2019-04-20] MEDS: Ascorbic Acid 500 mg Chewable Tablet PO SCH (09:46)
[2019-04-20] MEDS: Ketotifen Fumarate 0.025% Ophth Soln 5 ml Bottle EA EYE SCH (09:47)
[2019-04-20] MEDS: Furosemide 40 MG TAB PO SCH (09:47)
[2019-04-20 10:29] VITALS: BP 110/56; TEMP 98.3
[2019-04-20] MEDS: HYDROcodone/Acetaminophen 5/325 mg Tablet PO PRN (11:30)
--- NOTE | 2019-04-22 08:14 | DIS ---
DATE OF ADMISSION: 03/29/2019 DATE OF DISCHARGE: 04/20/2019 ADMISSION DIAGNOSIS: Surgical neck fracture of the right humerus, status post fall. SECONDARY DIAGNOSES: 1. Rheumatoid arthritis. 2. Hypertension. 3. Dyslipidemia. 4. Constipation. 5. History of CVA. 6. Gait instability. PROCEDURES: 1. On 04/02/2019, chest x-ray showed cardiomegaly with minimal change since the 2016 study. 2. On 03/26/2019, pelvis x-ray shows limited examination due to the portable technique. No definitive acute changes. HOSPITAL COURSE: An 89-year-old female, who lives home alone and fell when attempting to transition to the toilet. Subsequent imaging revealed the patient to have a surgical neck fracture of the right humerus; the patient is right-handed. She has been evaluated by Dr. Villanueva, Orthopedic Surgery with advised plan for conservative approach without surgical intervention. The patient was placed in a sling with specified orthopedic restriction. Secondary to her comorbidities and decreased functional status she was admitted and subsequently participated with physical therapy and occupational therapy. In addition to this, initially, her pain was intractable, requiring IV narcotic therapy. This improved and she graduated to her baseline p.o. [place] dosing. The patient had no significant setbacks during her stay and has shown some gradual improvement. However, she is unable to return home and satisfactorily care for herself. The plan will be for the patient to transition to [facility] for further therapy. DISPOSITION: The patient will discharge to [facility]. FOLLOWUP: She is to follow up with Dr. Villanueva on 04/22/2019. DISCHARGE MEDICATIONS: Include; 1. Ascorbic acid 500 mg daily. 2. Aspirin 325 mg daily. 3. Atorvastatin 10 mg at bedtime. 4. Cholecalciferol 1000 units q.i.d. 5. Famotidine 20 mg daily. 6. Flonase nasal spray p.r.n. 7. Folate acid 1 mg daily. 8. Lasix 40 mg daily. 9. [place] 5/325 q.4 hours p.r.n. 10. Hypromellose tears to each eye p.r.n. 11. Ipratropium bromide 2.5 mL nebs q.6 hours p.r.n. 12. Claritin 10 mg daily p.r.n. 13. Losartan 25 mg daily. 14. Magnesium hydroxide 30 mL p.o. daily p.r.n. 15. Methotrexate 2.5 mg as scheduled. 16. Orencia 125 mg injection once a week. 17. Potassium chloride 10 mEq daily. 18. Sotalol 80 mg b.i.d. 19. Zanaflex 4 mg daily p.r.n. 20. Systane eye drops. Job ID: [id number] MTDD
== END 2019-04-20 10:45 | DRG 561 ==
LOC: BURMED 22:00 → UNDOADMIN 03-30 01:58
PROVIDERS: ADMIT Family Medicine; ATTEND Family Medicine
DX: S42.211D Unspecified displaced fracture of surgical neck of right humerus, subsequent encounter for fracture with routine healing (principal); M06.9 Rheumatoid arthritis, unspecified; I10 Essential (primary) hypertension; E78.5 Hyperlipidemia, unspecified; R26.89 Other abnormalities of gait and mobility; K59.00 Constipation, unspecified; K21.9 Gastro-esophageal reflux disease without esophagitis; M10.9 Gout, unspecified; Z90.710 Acquired absence of both cervix and uterus; Z86.73 Personal history of transient ischemic attack (TIA), and cerebral infarction without residual deficits; Z95.0 Presence of cardiac pacemaker; Z90.49 Acquired absence of other specified parts of digestive tract; W18.30XD Fall on same level, unspecified, subsequent encounter
CPT/HCPCS: J3490

== ENCOUNTER → 2019-04-02 | Emergency (ER) | payer MEDICARE, BC ==
[2019-04-02 10:06] LABS: #Basophils 0.1 thou/uL (0.0-0.2); #Eosinphils 0.1 thou/uL (0.0-0.7); #Lymphocytes 1.2 thou/uL (1.20-3.40); #Monocytes 0.5 thou/uL (0.11-0.59); #Neutrophils 4.7 thou/uL (1.40-6.50); %Basophils 1.2 % (0.0-1.0); %Lymphocytes 17.9 % (21.0-51.0); %Monocytes 8.1 % (0.0-10.0); %Neutrophils 70.8 % (42.0-75.0); Hemoglobin 10.3 g/dL (12.0-16.0); Mean Corpuscular HGB CONC 30.4 g/dL (32.0-36.0); Mean Corpuscular Hemoglobin 32.4 pg (27.0-31.0); Mean Platelet Volume 6.3 fL (7.4-10.4); Platelet Count 219 thou/uL (130-400); RBC Distribution Width 14.7 % (11.5-14.5); Red Blood Cell (RBC) Count 3.18 mill/uL (4.20-5.40); White Blood Cell (WBC) Count 6.6 thou/uL (4.8-10.8)
[2019-04-02 10:09] LABS: ALT (SGPT) 9 U/L (8-55); AST (SGOT) 15 U/L (5-34); Albumin 3.4 g/dL (3.4-4.8); Alkaline Phosphatase 202 U/L (40-150); Anion Gap 15 mmol/L (10-20); BUN (Urea Nitrogen) 12 mg/dL (9.8-20.1); Bilirubin, Total 0.6 mg/dL (0.2-1.2); Calc. Creatinine Clearance 0 mL/min (70-130); Calcium 9.5 mg/dL (7.8-10.44); Carbon Dioxide 35 mmol/L (23-31); Chloride 98 mmol/L (98-107); Estimated GFR-MDRD 88; Globulin 3.6 g/dL (2.4-3.5); Glucose 154 mg/dL (83-110); Magnesium 1.7 mg/dL (1.6-2.6); Potassium 4.2 mmol/L (3.5-5.1); Sodium 144 mmol/L (136-145)
[2019-04-02 10:34] LABS: MDiff Complete? YES; Macrocytosis SLIGHT = 6-15 cells (100X) (0-5/hpf); Platelet Morphology Comment Appears Adequate
--- NOTE | 2019-04-02 17:55 | RAD ---
PORTABLE CHEST 04/02/19 An AP portable film at 0944 is compared with a 10/06/15 study. Mild to moderate cardiomegaly is about the same as before. There is no clear congestion of the upper lobe vessels. No lobar infiltrates were seen. Minor blunting of the left costophrenic angle seems no different than before, particularly allowing for the patient being turned slightly. The aortic arch i s dilated but no more so than previously. The cardiac pacer remains in place. IMPRESSION: Cardiomegaly with minimal change since the 2016 study. POS: HOME
== END ==
LOC: BURERS 09:28
DX: I48.92 Unspecified atrial flutter (principal); I95.9 Hypotension, unspecified; D64.9 Anemia, unspecified; I11.0 Hypertensive heart disease with heart failure; I50.9 Heart failure, unspecified; M06.9 Rheumatoid arthritis, unspecified; J44.9 Chronic obstructive pulmonary disease, unspecified; Z79.82 Long term (current) use of aspirin; Z79.899 Other long term (current) drug therapy; Z79.52 Long term (current) use of systemic steroids
CPT/HCPCS: 36415; 71045; 80053; 83735; 83880; 84484; 85025; 93005; 94760; 96360